=== PATIENT | male | born 1945 | race Hispanic/Latino ===

== ENCOUNTER 2017-12-26 17:02 | Inpatient (IN) | payer MEDICARE, BC ==
[2017-12-26 17:20] VITALS: O2SAT 95
--- NOTE | 2017-12-26 17:42 | ED PDOC ---
Arrival/HPI - General Chief Complaint: Psychiatric Evaluation Time Seen by Provider: 12/26/17 17:18 Historian: Patient - History of Present Illness Narrative History of Present Illness (Text): 12/26/17 21:09 72yo male with PMhx of depression and Dementia bib EMS from [facility] for depression. Patient states he was brought to ED for evaluation. He admits to depression. States his neighbors ar worried about him, because he has not been eating well. He notes that he is not eating because he doesn't like the food at [facility]. Admits to suicidal ideation. states if he has a gun, he will shoot himself. He denies hallucination, homicidal ideation, any somatic complaint. Past Medical History - Provider Review Nursing Documentation Reviewed: Yes - Infectious Disease Hx of Infectious Diseases: None - Cardiac Hx Cardiac Disorders: No - Pulmonary Hx Respiratory Disorders: No - Neurological Hx Dementia: Yes Hx Parkinson's Disease: Yes - HEENT Hx HEENT Disorder: No - Renal Hx Renal Disorder: No - Endocrine/Metabolic Hx Endocrine Disorders: No - Hematological/Oncological Hx Blood Disorders: No - Integumentary Hx Dermatological Disorder: No - Musculoskeletal/Rheumatological Hx Musculoskeletal Disorders: Yes Other/Comment: Failure to Thrive. Abnormal weight loss. - Gastrointestinal Hx Gastroesophageal Reflux: Yes - Genitourinary/Gynecological Hx Prostate Cancer: Yes (Malignant Neoplasm of prostate) - Psychiatric Hx Anxiety: Yes Hx Depression: Yes Hx Schizophrenia: Yes Hx Substance Use: No - Surgical History Hx Cholecystectomy: Yes - Anesthesia Hx Anesthesia: No Family/Social History - Physician Review Nursing Documentation Reviewed: Yes Family/Social History: Unknown Family HX Smoking Status: Never Smoked Hx Alcohol Use: No Hx Substance Use: No Allergies/Home Meds Allergies/Adverse Reactions: Allergies No Known Allergies Allergy (Verified 12/26/17 17:08) Home Medications: Home Meds Medication Instructions Recorded Confirmed Carbidopa/Levodopa 1 each PO TID 11/15/17 12/26/17 [Carbidopa-Levodopa 10-100 Tab] Tamsulosin [Flomax] 0.4 mg PO DAILY 11/15/17 12/26/17 Aluminum Hydroxide Gel 320mg /5ml 30 ml PO Q4 PRN 12/26/17 12/26/17 Susp (Bulk) Famotidine [Pepcid] 20 mg PO HS 12/26/17 12/26/17 Magnesium Hydroxide [Milk of 30 ml PO DAILY PRN 12/26/17 12/26/17 Magnesia] Sennosides 8.6 mg PO BID 12/26/17 12/26/17 Vortioxetine Hydrobromide 5 mg PO DAILY 12/26/17 12/26/17 [Trintellix] Vortioxetine Hydrobromide 10 mg PO DAILY 12/26/17 12/26/17 [Trintellix] Review of Systems - Physician Review All systems were reviewed & negative as marked: Yes - Review of Systems Constitutional: Normal Eyes: Normal ENT: Normal Respiratory: Normal Cardiovascular: Normal Gastrointestinal: Normal Genitourinary Male: Normal Musculoskeletal: Normal Skin: Normal Neurological: Normal Endocrine: Normal Hemo/Lymphatic: Normal Psychiatric: Depression Physical Exam Vital Signs Reviewed: Yes Vital Signs Temp Pulse Resp BP Pulse Ox 12/26/17 17:19 98.1 F 92 H 20 117/70 95 Temperature: Afebrile Blood Pressure: Normal Pulse: Regular Respiratory Rate: Normal Appearance: Positive for: Well-Appearing, Non-Toxic, Comfortable Pain Distress: None Mental Status: Positive for: Alert and Oriented X 3 - Systems Exam Head: Present: Atraumatic, Normocephalic Pupils: Present: PERRL Extroacular Muscles: Present: EOMI Conjunctiva: Present: Normal Mouth: Present: Moist Mucous Membranes Neck: Present: Normal Range of Motion Respiratory/Chest: Present: Clear to Auscultation, Good Air Exchange. No: Respiratory Distress, Accessory Muscle Use Cardiovascular: Present: Regular Rate and Rhythm, Normal S1, S2. No: Murmurs Abdomen: Present: Normal Bowel Sounds. No: Tenderness, Distention, Peritoneal Signs Back: Present: Normal Inspection Upper Extremity: Present: Normal Inspection. No: Cyanosis, Edema Lower Extremity: Present: Normal Inspection. No: Edema Neurological: Present: GCS=15, CN II-XII Intact, Speech Normal Skin: Present: Warm, Dry, Normal Color. No: Rashes Psychiatric: Present: Alert, Oriented x 3, Normal Insight, Normal Concentration Medical Decision Making ED Course and Treatment: 12/26/17 23:39 PT in ED for stated history. He was medically cleared for psych evaluation. He was seen in ED by MICHAEL Kincaid and was admitted to Dr. Belle for depression. EKG NSR ; RBB @92bpm CXR NAD - Lab Interpretations Lab Results: 12/26/17 18:08 12/26/17 18:08 Lab Results 12/26/17 19:43: Urine Opiates Screen Negative, Urine Methadone Screen Negative, Ur Barbiturates Screen Negative, Ur Phencyclidine Scrn Negative, Ur Amphetamines Screen Negative, U Benzodiazepines Scrn Positive, U Oth Cocaine Metabols Negative, U Cannabinoids Screen Positive H 12/26/17 19:43: Urine Color Yellow, Urine Appearance Clear, Urine pH 6.0, Ur Specific [place] 1.025, Urine Protein Trace H, Urine Glucose (UA) Negative, Urine Ketones 15 H, Urine Blood Negative, Urine Nitrate Negative, Urine Bilirubin Negative, Urine Urobilinogen 0.2, Ur Leukocyte Esterase Negative, Urine RBC 0 - 2, Urine WBC 0 - 2, Ur Epithelial Cells 0 - 2, Urine Bacteria Few 12/26/17 18:08: Alcohol, Quantitative < 10 12/26/17 18:08: Salicylates < 1 L, Acetaminophen < 10.0 L 12/26/17 18:08: Sodium 141, Potassium 3.9, Chloride 106, Carbon Dioxide 27, Anion Gap 12, BUN 15, Creatinine 1.0, Est GFR ( Amer) > 60, Est GFR (Non- Af Amer) > 60, Random Glucose 94, Calcium 9.7, Total Bilirubin 0.7, AST 30, ALT 23, Alkaline Phosphatase 63, Total Protein 6.3, Albumin 3.6, Globulin 2.7, Albumin/Globulin Ratio 1.3 12/26/17 18:08: WBC 5.0, RBC 3.98, Hgb 12.6 L, Hct 36.4 L, MCV 91.5, MCH 31.7, MCHC 34.6, RDW 12.8, Plt Count 275, MPV 8.8, Gran % 59.5, Lymph % (Auto) 28.0, [place] % (Auto) 9.3 H, Eos % (Auto) 2.6, Baso % (Auto) 0.6, Gran # 3.00, Lymph # ( Auto) 1.4, [place] # (Auto) 0.5, Eos # (Auto) 0.1, Baso # (Auto) 0.03 Disposition/Present on Arrival - Present on Arrival Any Indicators Present on Arrival: No History of DVT/PE: No History of Uncontrolled Diabetes: No Urinary Catheter: No History of Decub. Ulcer: No History Surgical Site Infection Following: None - Disposition Have Diagnosis and Disposition been Completed?: Yes Diagnosis: Depression Disposition: HOSPITALIZED Disposition Time: 22:25 Patient Plan: Admission Patient Problems: Current Active Problems Problem Status Onset Depression Chronic Condition: FAIR
[2017-12-26 18:24] LABS: BASO # 0.03 K/mm3 (0.0-2.0); BASO % 0.6 % (0.0-3.0); EOS # 0.1 (0.0-0.7); EOS % 2.6 % (1.5-5.0); GRAN % 59.5 % (50.0-68.0); HEMOGLOBIN 12.6 g/dL (14.0-18.0); LYMPH # 1.4 (1.2-3.4); MEAN CELL VOLUME 91.5 fl (80.0-105.0); MEAN CORPUSCULAR HEMOGLOBIN 31.7 pg (25.0-35.0); MEAN CORPUSCULAR HGB CONC 34.6 g/dl (31.0-37.0); MEAN PLATELET VOLUME 8.8 fl (7.0-11.0); MONO # 0.5 (0.1-0.6); MONO % 9.3 % (1.0-6.0); RBC 3.98 10^6/uL (3.5-6.1); RED CELL DISTRIBUTION WIDTH 12.8 % (11.5-14.5)
[2017-12-26 19:06] LABS: ALB/GLOB RATIO 1.3 (1.1-1.8); ALBUMIN 3.6 g/dL (3.0-4.8); ALT/SGPT 23 U/L (7-56); AST/SGOT 30 U/L (17-59); BLOOD UREA NITROGEN 15 mg/dL (7-21); CALCIUM 9.7 mg/dL (8.4-10.5); GFR AFRICAN-AMERICAN > 60; GFR NON-AFRICAN AMERICAN > 60
[2017-12-26 19:09] LABS: ACETAMINOPHEN < 10.0 ug/ml (10.0-20.0); SALICYLATE < 1 mg/dL (2.0-20.0)
[2017-12-26 20:02] LABS: URINE APPEARANCE CLEAR (CLEAR); URINE BILIRUBIN NEGATIVE (NEGATIVE); URINE BLOOD NEGATIVE (NEGATIVE); URINE COLOR YELLOW (YELLOW); URINE GLUCOSE (UA) NEGATIVE (NEGATIVE); URINE LEUKOCYTE ESTERASE NEGATIVE Leu/uL (NEGATIVE); URINE PROTEIN TRACE mg/dL (<30 mg/dL); URINE UROBILINOGEN 0.2 E.U./dL (<1 E.U./dL)
[2017-12-26 20:32] LABS: BARBITURATES, UR NEGATIVE (NEGATIVE); BENZODIAZEPINES, UR POSITIVE (NEGATIVE); OPIATES, UR NEGATIVE (NEGATIVE); PHENCYCLIDINE, UR NEGATIVE (NEGATIVE)
[2017-12-26 21:18] LABS: URINE BACTERIA FEW (NEG); URINE EPITHELIAL CELLS 0 - 2 /hpf (0-5); URINE RBC 0 - 2 /hpf (0-2); URINE WBC 0 - 2 /hpf (0-6)
[2017-12-27] MEDS ORDERED: Alum-Mag Hydrox-Simethicone Susp (30 mL) PO PRN (00:45)
[2017-12-27] MEDS ORDERED: Magnesium Hydroxide Susp 30 ml UD PO PRN (00:45)
[2017-12-27 00:56] VITALS: BMI 21.6
--- NOTE | 2017-12-27 02:35 | PCM.BM ---
<Megan Coronado - Last Filed: 12/27/17 02:32> Treatment Plan Problems - Problems identified on initial assessmt Anxiety Date Initiated: 12/26/17 Time Initiated: 23:45 Assessment reference: NA Status: Active Priority: 1 Altered Thought Process Date Initiated: 12/26/17 Time Initiated: 23:45 Assessment reference: NA Status: Active Priority: 2 Altered Sleep Patterns Date Initiated: 12/26/17 Time Initiated: 23:45 Assessment reference: NA Status: Active Priority: 3 Treatment assets and liabiliti Patient Assests: cooperative Patient Liabilities: poor support system, medical problems, imparied memory, visual impairment - Milieu Protocol Maintain good personal hygiene: daily Encourage regular showers, daily Remind patient to perform daily oral care, daily Assist patient to perform ADL's Conduct patient checks and document Observation sheet: Q15 minutes Maintain personal safety: every shift Educate patient to report safety concerns to staff, every shift Monitor environment for contraband/sharps Medication safety: Monitor for expected outcome, potential side effects: every shift, Assess barriers to learning: every shift, Assess readiness for medication education: every shift Discharge/Continuing Care - Education Needs Education Needs: Family Medication, Family Diagnosis/Disease Process, Family Coping Skills, Family Community resources, Family Nutrition, Patient Medication , Patient Diagnosis/Disease Process, Patient Coping Skills, Patient Community resources, Patient Nutrition - Discharge Discharge Criteria: Tolerates medication w/o severe side effects, Free of agitation, Normal sleep pattern, Ability to care for self <Barbra Haynes - Last Filed: 12/27/17 12:17> - Diagnosis (1) MDD (major depressive disorder), recurrent, severe, with psychosis Status: Acute Interventions: 12/27/17 12:18 Psychoeducation Psychopharmacology/adjustment of medications as needed/ monitoring possible side effects Evaluate pt on daily basis Compliance with medications and follow up appointments Suicide and homicide risk assessment and prevention Relapse prevention Reduction of symptoms Improve functional status Family involvement As outpatient: cognitive behavioral therapy (2) JANETTE (generalized anxiety disorder) Status: Acute Interventions: 12/27/17 12:18 Psychoeducation Psychopharmacology/adjustment of medications as needed/ monitoring possible side effects Evaluate pt on daily basis Discussion of importance of being compliant with medications and follow up appointments Suicide and homicide risk assessment and prevention, coping strategies, safety plan Reduction of symptoms Relaxation techniques and breathing exercises Improve functional status Family involvement Cognitive behavioral therapy as outpatient (3) Panic disorder Status: Acute Interventions: 12/27/17 12:18 Psychoeducation Psychopharmacology/adjustment of medications as needed/ monitoring possible side effects Evaluate pt on daily basis Discussion of importance of being compliant with medications and follow up appointments Suicide and homicide risk assessment and prevention, coping strategies, safety plan Reduction of symptoms Relaxation techniques and breathing exercises Improve functional status Family involvement Cognitive behavioral therapy as outpatient <Ivanna Calderon - Last Filed: 12/29/17 15:23>
[2017-12-27 08:06] LABS: GLUCOSE,FASTING 80 mg/dL (65-110); HDL CHOLESTEROL 38 mg/dL (29-60)
[2017-12-27 08:17] LABS: LDL CHOLESTEROL 76 mg/dL (0-129)
--- NOTE | 2017-12-27 10:14 | RAD ---
HISTORY: admission COMPARISON: No prior. FINDINGS: LUNGS: No active pulmonary disease. PLEURA: No significant pleural effusion identified, no pneumothorax apparent. CARDIOVASCULAR: No radiographic findings to suggest acute or significant cardiovascular disease. OSSEOUS STRUCTURES: No significant abnormalities. VISUALIZED UPPER ABDOMEN: Normal. OTHER FINDINGS: None. IMPRESSION: No active disease.
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
--- NOTE | 2017-12-27 15:49 | CARD ---
APPROVED REPORT EKG Measurement Heart [id number] [id number] <Conclusion> Normal sinus rhythm Right bundle branch block Abnormal ECG
--- NOTE | 2017-12-28 12:57 | PCM.PYCHPN ---
Psychiatric Progress Note - Psychiatric Progress Note Patient seen today, length of contact: 30 minutes Patient Chief Complaint: "U medicated at me, that's why slept well" Problems Identified/Issues Discussed: Suicide/ homicide prevention, past psychiatric h/o, current psychiatric symptoms , medical problems, risk/benefits and alternatives of medications, medications compliance, coping strategies, substance abuse h/o, relapse prevention, importance of follow up with psychiatrist and therapist, discharge plan. Medical Problems: parkinson's disease and dementia Diagnostic Results: 12/26/17 18:08 12/26/17 18:08 Lab Results 12/27/17 07:00: RPR Nonreactive 12/27/17 07:00: TSH 3rd Generation 1.15 12/27/17 07:00: Fasting Glucose 80, Triglycerides 124, Cholesterol 149, LDL Cholesterol Direct 76, HDL Cholesterol 38 12/26/17 19:43: Urine Opiates Screen Negative, Urine Methadone Screen Negative, Ur Barbiturates Screen Negative, Ur Phencyclidine Scrn Negative, Ur Amphetamines Screen Negative, U Benzodiazepines Scrn Positive, U Oth Cocaine Metabols Negative, U Cannabinoids Screen Positive H 12/26/17 19:43: Urine Color Yellow, Urine Appearance Clear, Urine pH 6.0, Ur Specific [place] 1.025, Urine Protein Trace H, Urine Glucose (UA) Negative, Urine Ketones 15 H, Urine Blood Negative, Urine Nitrate Negative, Urine Bilirubin Negative, Urine Urobilinogen 0.2, Ur Leukocyte Esterase Negative, Urine RBC 0 - 2, Urine WBC 0 - 2, Ur Epithelial Cells 0 - 2, Urine Bacteria Few 12/26/17 18:08: Alcohol, Quantitative < 10 12/26/17 18:08: Salicylates < 1 L, Acetaminophen < 10.0 L 12/26/17 18:08: Sodium 141, Potassium 3.9, Chloride 106, Carbon Dioxide 27, Anion Gap 12, BUN 15, Creatinine 1.0, Est GFR ( Amer) > 60, Est GFR (Non- Af Amer) > 60, Random Glucose 94, Calcium 9.7, Total Bilirubin 0.7, AST 30, ALT 23, Alkaline Phosphatase 63, Total Protein 6.3, Albumin 3.6, Globulin 2.7, Albumin/Globulin Ratio 1.3 12/26/17 18:08: WBC 5.0, RBC 3.98, Hgb 12.6 L, Hct 36.4 L, MCV 91.5, MCH 31.7, MCHC 34.6, RDW 12.8, Plt Count 275, MPV 8.8, Gran % 59.5, Lymph % (Auto) 28.0, [place] % (Auto) 9.3 H, Eos % (Auto) 2.6, Baso % (Auto) 0.6, Gran # 3.00, Lymph # ( Auto) 1.4, [place] # (Auto) 0.5, Eos # (Auto) 0.1, Baso # (Auto) 0.03 Vital Signs Temp Pulse Resp BP Pulse Ox 12/28/17 07:45 97.3 F L 62 20 97/59 L 12/27/17 16:00 70 86/54 L 12/27/17 07:06 97.3 F L 74 20 105/48 L 12/27/17 00:55 98.2 F 79 20 104/62 12/26/17 17:19 98.1 F 92 H 20 117/70 95 DSM 5 Symptoms Update: Shortly pt is 72yo male with reported h/o depression/anxiety, Parkinson Dementia, multiple medical issues including weight loss, failure to thrive, GERD, malignant neoplasm of prostate, was sent by [place] for evaluation of depressive symptoms, refuse to eat, feeling of hopelessness, worsening of anxiety, change in mental status, pt also was asking his POA to obtain a gun and expressed his wish to kill himself, pt also was more paranoid lately, pt has Parkinson's dementia and severe EPS on antipsychotic meds and pt required further evaluation and stabilization, med management. pt was seen and examined next to the nursing station today, pt was observed walking with 1:1 using a walker, patient presented with better spirits today, was less irritable, less paranoid. As per staff, patient slept through the night, no behavioral incident, had fair appetite, ate about 60-70% of his meal. Patient still in the high risk of falls, at times confusion, we will continue one-to-one as of now, possible discontinuation off one-to-one by tomorrow. Patient reported "you medicated me, that's why I slept well" Patient tolerates medications well so far, mild tremor in upper extremities, no worsening of EPS symptoms. DSM 5 Diagnosis: r/o mdd r/o mood disorder due to a [facility] parkinson's dementia r/o psychosis due to medications (levodopa/carbidopa) h/o JANETTE, panic disorder, OCD Medication Change: Yes (Seroquel was increased) Medical Record Reviewed: Yes (yes) Consults ordered or reviewed: urology consult was called, patient has Parkinson dementia, history of EPS on psychotropic medications, will be seen by Dr. Santiago tomorrow. Mental Status Examination - Cognitive Function Orientation: Person Memory: Impaired Attention: Poor Concentration: Poor Association: Loose Fund of Knowledge: WNL - Mood Mood: Depressed, Anxious - Affect Affect: Flat - Speech Speech: Appropriate (but soft and monotonic) - Formal Thought Process Formal Thought Process: Delusions (little better), Paranoia (little better), Circumstantial - Suicidal Ideation Suicidal Ideation: No Plan: denied today, but yesterday - Homicidal Ideation Homicidal Ideation: No Goal/Treatment Plan - Goal/Treatment Plan Need for Continued Stay: Remain at risks for inpatient hospitalization, Severe depression anxiety, Discharge may exacerbated symptoms, Severe functional impairment Progress Toward Problem(s) and Goals/Treatment Plan: milieu/structure/supportive therapy Carbidopa/Levodopa [Carbidopa-Levodopa 10-100 Tab] 1 each PO TID will be continued PT eval Neuro eval Tamsulosin [Flomax] 0.4 mg PO DAILY will be continued Temazepam [Restoril] will be d/c Sennosides 8.6 mg PO BID continued Vortioxetine nonformulary, Remeron was started, over night, pt slept little better, will increase dose to 15mg zoloft 25mg dailyfor OCD and Panic, JANETTE symptoms seroquel 25mg amhs for psychosis (better side effect profile in regards of EPS) will give PRN meds SW evaluation POA involvement Follow up on labs Will monitor closely Pt was educated about risk/benefits and alternatives of medications, coping strategies (safety plan, suicide prevention), relapse prevention, importance of follow up with psychiatrist and therapist, stay away from drugs/alcohol/smoking Estimated Date of D/C: 01/05/18 (will monitor closely)
--- NOTE | 2017-12-29 13:27 | CP.PCM.PCO ---
Physician Communication Note - Physician Communication Note Physician Communication Note: NOT PD, HOLD sinemet.
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
--- NOTE | 2017-12-29 21:18 | CON ---
DATE: HISTORY OF PRESENT ILLNESS: This is a 72-year-old male with past medical history of dementia and depression, who was brought here from [facility] and the patient complained of depression and lying comfortably in bed. I was called to evaluate the patient admitted with suicidal ideation, admitted for harming himself. PAST MEDICAL HISTORY: As above. ALLERGIES: NO KNOWN DRUG ALLERGY. HOME MEDICATIONS: Carbidopa and levodopa one t.i.d., Pepcid, Flomax, and the patient is on Trintellix. REVIEW OF SYSTEMS: A 10-point review of systems was negative. LABORATORY DATA: WBC 5, hemoglobin 12.6, hematocrit 36.4, platelet 275. Sodium 141, potassium 3.9, chloride 106, CO2 of 27, glucose 94, BUN 15, creatinine 1. Workup in progress. Continue present management. We will follow up. We will order the CAT scan of the head without contrast. Bull Santiago MD
--- NOTE | 2017-12-30 16:04 | PCM.PYCHPN ---
Psychiatric Progress Note - Psychiatric Progress Note Patient seen today, length of contact: 30 minutes Patient Chief Complaint: " my mood is not existing" Problems Identified/Issues Discussed: Suicide/ homicide prevention, past psychiatric h/o, current psychiatric symptoms , medical problems, risk/benefits and alternatives of medications, medications compliance, coping strategies, substance abuse h/o, relapse prevention, importance of follow up with psychiatrist and therapist, discharge plan. Medical Problems: correction to my previous note: pt had parkinsonism, not parkinsons disease Diagnostic Results: 12/26/17 18:08 12/26/17 18:08 Lab Results 12/27/17 07:00: RPR Nonreactive 12/27/17 07:00: TSH 3rd Generation 1.15 12/27/17 07:00: Fasting Glucose 80, Triglycerides 124, Cholesterol 149, LDL Cholesterol Direct 76, HDL Cholesterol 38 12/26/17 19:43: Urine Opiates Screen Negative, Urine Methadone Screen Negative, Ur Barbiturates Screen Negative, Ur Phencyclidine Scrn Negative, Ur Amphetamines Screen Negative, U Benzodiazepines Scrn Positive, U Oth Cocaine Metabols Negative, U Cannabinoids Screen Positive H 12/26/17 19:43: Urine Color Yellow, Urine Appearance Clear, Urine pH 6.0, Ur Specific [place] 1.025, Urine Protein Trace H, Urine Glucose (UA) Negative, Urine Ketones 15 H, Urine Blood Negative, Urine Nitrate Negative, Urine Bilirubin Negative, Urine Urobilinogen 0.2, Ur Leukocyte Esterase Negative, Urine RBC 0 - 2, Urine WBC 0 - 2, Ur Epithelial Cells 0 - 2, Urine Bacteria Few 12/26/17 18:08: Alcohol, Quantitative < 10 12/26/17 18:08: Salicylates < 1 L, Acetaminophen < 10.0 L 12/26/17 18:08: Sodium 141, Potassium 3.9, Chloride 106, Carbon Dioxide 27, Anion Gap 12, BUN 15, Creatinine 1.0, Est GFR ( Amer) > 60, Est GFR (Non- Af Amer) > 60, Random Glucose 94, Calcium 9.7, Total Bilirubin 0.7, AST 30, ALT 23, Alkaline Phosphatase 63, Total Protein 6.3, Albumin 3.6, Globulin 2.7, Albumin/Globulin Ratio 1.3 12/26/17 18:08: WBC 5.0, RBC 3.98, Hgb 12.6 L, Hct 36.4 L, MCV 91.5, MCH 31.7, MCHC 34.6, RDW 12.8, Plt Count 275, MPV 8.8, Gran % 59.5, Lymph % (Auto) 28.0, [place] % (Auto) 9.3 H, Eos % (Auto) 2.6, Baso % (Auto) 0.6, Gran # 3.00, Lymph # ( Auto) 1.4, [place] # (Auto) 0.5, Eos # (Auto) 0.1, Baso # (Auto) 0.03 Vital Signs Temp Pulse Resp BP Pulse Ox 12/28/17 07:45 97.3 F L 62 20 97/59 L 12/27/17 16:00 70 86/54 L 12/27/17 07:06 97.3 F L 74 20 105/48 L 12/27/17 00:55 98.2 F 79 20 104/62 12/26/17 17:19 98.1 F 92 H 20 117/70 95 Temp Pulse Resp BP Pulse Ox 97.6 F 75 20 86/52 L 95 12/29/17 07:25 12/29/17 07:25 12/29/17 07:25 12/29/17 07:25 12/26/17 17:19 DSM 5 Symptoms Update: Shortly pt is 72yo male with reported h/o depression/anxiety, Parkinsonism, multiple medical issues including weight loss, failure to thrive, GERD, malignant neoplasm of prostate, was sent by [place] for evaluation of depressive symptoms, refuse to eat, feeling of hopelessness, worsening of anxiety, change in mental status, pt also was asking his POA to obtain a gun and expressed his wish to kill himself, pt also was more paranoid lately. Correction to my previous note, after discussion with (neurologist) 12/29/17 pt does not have history of Parkinson's disease, r/o dementia and severe EPS on antipsychotic/antidepressants meds. Pt required further evaluation and stabilization, med management. pt was seen and examined today at the dining area, patient appears with some psychomotor retardation, patient reported that he feels "groggy", as per report patient was very restless yesterday needed to have IM of Ativan over nighttime. patient appears to be depressed, with some psychomotor retardation, patient said that his mood is not existing at present moment, patient appears to be flat , apathetic during the interview. As per nursing report, yesterday patient was in good spirits, were some TV and ate well. Patient still paranoid, but then less extent. Patient still in the high risk of falls, at times confusion, we will continue one-to-one as of now, as of now pt will be not able to be off 1:1, as per PT pt needs to go to [facility]. Patient tolerates medications well so far, mild tremor in upper extremities, no worsening of EPS symptoms. DSM 5 Diagnosis: r/o mdd r/o mood disorder due to a [facility] parkinson's dementia r/o psychosis due to medications (levodopa/carbidopa) h/o JANETTE, panic disorder, OCD Medication Change: Yes (Zoloft increased) Medical Record Reviewed: Yes (yes) Mental Status Examination - Cognitive Function Orientation: Person Memory: Impaired Attention: Poor Concentration: Poor Association: Loose Fund of Knowledge: WNL - Mood Mood: Depressed, Anxious - Affect Affect: Flat - Speech Speech: Appropriate (but soft and monotonic) - Formal Thought Process Formal Thought Process: Delusions (little better), Paranoia (little better), Circumstantial - Suicidal Ideation Suicidal Ideation: No - Homicidal Ideation Homicidal Ideation: No Goal/Treatment Plan - Goal/Treatment Plan Need for Continued Stay: Remain at risks for inpatient hospitalization, Severe depression anxiety, Discharge may exacerbated symptoms, Severe functional impairment Progress Toward Problem(s) and Goals/Treatment Plan: milieu/structure/supportive therapy Carbidopa/Levodopa will be d/c PT eval [facility] Neuro eval d/c sinemet Tamsulosin [Flomax] 0.4 mg PO DAILY will be continued Temazepam [Restoril] will be d/c Sennosides 8.6 mg PO BID continued Vortioxetine nonformulary, Remeron was started, over night, pt slept little better, will increase dose to 15mg zoloft 50mg dailyfor OCD and Panic, JANETTE symptoms seroquel 25mg amhs for psychosis (better side effect profile in regards of EPS) will give PRN meds SW evaluation POA involvement Follow up on labs Will monitor closely Pt was educated about risk/benefits and alternatives of medications, coping strategies (safety plan, suicide prevention), relapse prevention, importance of follow up with psychiatrist and therapist, stay away from drugs/alcohol/smoking Estimated Date of D/C: 01/05/18 (will monitor closely)
--- NOTE | 2017-12-31 12:33 | PCM.PYCHPN ---
Psychiatric Progress Note - Psychiatric Progress Note Patient seen today, length of contact: 30 minutes Patient Chief Complaint: "...." Problems Identified/Issues Discussed: Suicide/ homicide prevention, past psychiatric h/o, current psychiatric symptoms , medical problems, risk/benefits and alternatives of medications, medications compliance, coping strategies, substance abuse h/o, relapse prevention, importance of follow up with psychiatrist and therapist, discharge plan. Medical Problems: correction to my previous note: pt had parkinsonism, not parkinsons disease Diagnostic Results: 12/26/17 18:08 12/26/17 18:08 Lab Results 12/27/17 07:00: RPR Nonreactive 12/27/17 07:00: TSH 3rd Generation 1.15 12/27/17 07:00: Fasting Glucose 80, Triglycerides 124, Cholesterol 149, LDL Cholesterol Direct 76, HDL Cholesterol 38 12/26/17 19:43: Urine Opiates Screen Negative, Urine Methadone Screen Negative, Ur Barbiturates Screen Negative, Ur Phencyclidine Scrn Negative, Ur Amphetamines Screen Negative, U Benzodiazepines Scrn Positive, U Oth Cocaine Metabols Negative, U Cannabinoids Screen Positive H 12/26/17 19:43: Urine Color Yellow, Urine Appearance Clear, Urine pH 6.0, Ur Specific Roberts 1.025, Urine Protein Trace H, Urine Glucose (UA) Negative, Urine Ketones 15 H, Urine Blood Negative, Urine Nitrate Negative, Urine Bilirubin Negative, Urine Urobilinogen 0.2, Ur Leukocyte Esterase Negative, Urine RBC 0 - 2, Urine WBC 0 - 2, Ur Epithelial Cells 0 - 2, Urine Bacteria Few 12/26/17 18:08: Alcohol, Quantitative < 10 12/26/17 18:08: Salicylates < 1 L, Acetaminophen < 10.0 L 12/26/17 18:08: Sodium 141, Potassium 3.9, Chloride 106, Carbon Dioxide 27, Anion Gap 12, BUN 15, Creatinine 1.0, Est GFR ( Amer) > 60, Est GFR (Non- Af Amer) > 60, Random Glucose 94, Calcium 9.7, Total Bilirubin 0.7, AST 30, ALT 23, Alkaline Phosphatase 63, Total Protein 6.3, Albumin 3.6, Globulin 2.7, Albumin/Globulin Ratio 1.3 12/26/17 18:08: WBC 5.0, RBC 3.98, Hgb 12.6 L, Hct 36.4 L, MCV 91.5, MCH 31.7, MCHC 34.6, RDW 12.8, Plt Count 275, MPV 8.8, Gran % 59.5, Lymph % (Auto) 28.0, Pickett % (Auto) 9.3 H, Eos % (Auto) 2.6, Baso % (Auto) 0.6, Gran # 3.00, Lymph # ( Auto) 1.4, Pickett # (Auto) 0.5, Eos # (Auto) 0.1, Baso # (Auto) 0.03 Vital Signs Temp Pulse Resp BP Pulse Ox 12/28/17 07:45 97.3 F L 62 20 97/59 L 12/27/17 16:00 70 86/54 L 12/27/17 07:06 97.3 F L 74 20 105/48 L 12/27/17 00:55 98.2 F 79 20 104/62 12/26/17 17:19 98.1 F 92 H 20 117/70 95 Temp Pulse Resp BP Pulse Ox 97.6 F 75 20 86/52 L 95 12/29/17 07:25 12/29/17 07:25 12/29/17 07:25 12/29/17 07:25 12/26/17 17:19 Temp Pulse Resp BP Pulse Ox 98.2 F 65 20 116/58 L 95 12/31/17 07:21 12/31/17 07:21 12/31/17 07:21 12/31/17 07:21 12/26/17 17:19 DSM 5 Symptoms Update: Shortly pt is 72yo male with reported h/o depression/anxiety, Parkinsonism, multiple medical issues including weight loss, failure to thrive, GERD, malignant neoplasm of prostate, was sent by [place] for evaluation of depressive symptoms, refuse to eat, feeling of hopelessness, worsening of anxiety, change in mental status, pt also was asking his POA to obtain a gun and expressed his wish to kill himself, pt also was more paranoid lately. Correction to my previous note, after discussion with (neurologist) 12/29/17 pt does not have history of Parkinson's disease, r/o dementia and severe EPS on antipsychotic/antidepressants meds. Pt required further evaluation and stabilization, med management. pt was seen in the dinning area, patient was sleepy at am because pt had a rough night, was not able to sleep because of other pt agitaton, then pt became restless and tried to climb off the bed, was in danger to self, pt needed to have IM of ativan. pt appeared to be still, some cogwheel rigidity, will resume Sinemet as per neurology recommendation (discussed with Dr.Kapoor Abel over the phone). pt said that he is less depressed, guarded but less paranoid. Patient still in the high risk of falls, at times confusion, we will continue one-to-one as of now, as of now pt will be not able to be off 1:1, as per PT pt needs to go to [facility]. pt is able to ambulate using a rolling walker. DSM 5 Diagnosis: r/o mdd r/o mood disorder due to [place] [facility] r/o psychosis due to medications (levodopa/carbidopa) h/o JANETTE, panic disorder, OCD Medication Change: Yes (sinemet) Medical Record Reviewed: Yes (yes) Mental Status Examination - Cognitive Function Orientation: Person Memory: Impaired Attention: Poor Concentration: Poor Association: Loose Fund of Knowledge: WNL - Mood Mood: Depressed, Anxious - Affect Affect: Flat - Speech Speech: Appropriate (but soft and monotonic) - Formal Thought Process Formal Thought Process: Delusions (little better), Paranoia (little better), Circumstantial - Suicidal Ideation Suicidal Ideation: No - Homicidal Ideation Homicidal Ideation: No Goal/Treatment Plan - Goal/Treatment Plan Need for Continued Stay: Remain at risks for inpatient hospitalization, Severe depression anxiety, Discharge may exacerbated symptoms, Severe functional impairment Progress Toward Problem(s) and Goals/Treatment Plan: milieu/structure/supportive therapy Carbidopa/Levodopa 10/100 will be resumed PT eval [facility] Neuro eval d/c sinemet Tamsulosin [Flomax] 0.4 mg PO DAILY will be continued Temazepam [Restoril] will be d/c Sennosides 8.6 mg PO BID continued Vortioxetine nonformulary, Remeron was started, over night, pt slept little better, will increase dose to 15mg zoloft 50mg dailyfor OCD and Panic, JANETTE symptoms seroquel 25mg amhs for psychosis (better side effect profile in regards of EPS) will give PRN meds SW evaluation POA involvement Follow up on labs Will monitor closely Pt was educated about risk/benefits and alternatives of medications, coping strategies (safety plan, suicide prevention), relapse prevention, importance of follow up with psychiatrist and therapist, stay away from drugs/alcohol/smoking Estimated Date of D/C: 01/05/18 (will monitor closely)
--- NOTE | 2018-01-01 15:31 | PCM.PYCHPN ---
Psychiatric Progress Note - Psychiatric Progress Note Patient seen today, length of contact: 30 minutes Patient Chief Complaint: "I am still depressed" Problems Identified/Issues Discussed: Suicide/ homicide prevention, past psychiatric h/o, current psychiatric symptoms , medical problems, risk/benefits and alternatives of medications, medications compliance, coping strategies, substance abuse h/o, relapse prevention, importance of follow up with psychiatrist and therapist, discharge plan. Medical Problems: correction to my previous note: pt had parkinsonism, not parkinsons disease Diagnostic Results: 12/26/17 18:08 12/26/17 18:08 Lab Results 12/27/17 07:00: RPR Nonreactive 12/27/17 07:00: TSH 3rd Generation 1.15 12/27/17 07:00: Fasting Glucose 80, Triglycerides 124, Cholesterol 149, LDL Cholesterol Direct 76, HDL Cholesterol 38 12/26/17 19:43: Urine Opiates Screen Negative, Urine Methadone Screen Negative, Ur Barbiturates Screen Negative, Ur Phencyclidine Scrn Negative, Ur Amphetamines Screen Negative, U Benzodiazepines Scrn Positive, U Oth Cocaine Metabols Negative, U Cannabinoids Screen Positive H 12/26/17 19:43: Urine Color Yellow, Urine Appearance Clear, Urine pH 6.0, Ur Specific Boyle 1.025, Urine Protein Trace H, Urine Glucose (UA) Negative, Urine Ketones 15 H, Urine Blood Negative, Urine Nitrate Negative, Urine Bilirubin Negative, Urine Urobilinogen 0.2, Ur Leukocyte Esterase Negative, Urine RBC 0 - 2, Urine WBC 0 - 2, Ur Epithelial Cells 0 - 2, Urine Bacteria Few 12/26/17 18:08: Alcohol, Quantitative < 10 12/26/17 18:08: Salicylates < 1 L, Acetaminophen < 10.0 L 12/26/17 18:08: Sodium 141, Potassium 3.9, Chloride 106, Carbon Dioxide 27, Anion Gap 12, BUN 15, Creatinine 1.0, Est GFR ( Amer) > 60, Est GFR (Non- Af Amer) > 60, Random Glucose 94, Calcium 9.7, Total Bilirubin 0.7, AST 30, ALT 23, Alkaline Phosphatase 63, Total Protein 6.3, Albumin 3.6, Globulin 2.7, Albumin/Globulin Ratio 1.3 12/26/17 18:08: WBC 5.0, RBC 3.98, Hgb 12.6 L, Hct 36.4 L, MCV 91.5, MCH 31.7, MCHC 34.6, RDW 12.8, Plt Count 275, MPV 8.8, Gran % 59.5, Lymph % (Auto) 28.0, Granite % (Auto) 9.3 H, Eos % (Auto) 2.6, Baso % (Auto) 0.6, Gran # 3.00, Lymph # ( Auto) 1.4, Granite # (Auto) 0.5, Eos # (Auto) 0.1, Baso # (Auto) 0.03 Vital Signs Temp Pulse Resp BP Pulse Ox 12/28/17 07:45 97.3 F L 62 20 97/59 L 12/27/17 16:00 70 86/54 L 12/27/17 07:06 97.3 F L 74 20 105/48 L 12/27/17 00:55 98.2 F 79 20 104/62 12/26/17 17:19 98.1 F 92 H 20 117/70 95 Temp Pulse Resp BP Pulse Ox 97.6 F 75 20 86/52 L 95 12/29/17 07:25 12/29/17 07:25 12/29/17 07:25 12/29/17 07:25 12/26/17 17:19 Temp Pulse Resp BP Pulse Ox 98.2 F 65 20 116/58 L 95 12/31/17 07:21 12/31/17 07:21 12/31/17 07:21 12/31/17 07:21 12/26/17 17:19 DSM 5 Symptoms Update: Shortly pt is 72yo male with reported h/o depression/anxiety, Parkinsonism, multiple medical issues including weight loss, failure to thrive, GERD, malignant neoplasm of prostate, was sent by [place] for evaluation of depressive symptoms, refuse to eat, feeling of hopelessness, worsening of anxiety, change in mental status, pt also was asking his POA to obtain a gun and expressed his wish to kill himself, pt also was more paranoid lately. Correction to my previous note, after discussion with (neurologist) 12/29/17 pt does not have history of Parkinson's disease, r/o dementia and severe EPS on antipsychotic/antidepressants meds. Pt required further evaluation and stabilization, med management. pt was seen in the dinning area, patient was sleepy at am because pt had a rough night as per report pt had difficulties to fall and to stay asleep. pt still feels very depressed, no changes with pt's mood pt still wants to purchase the gun and "blow my head off". yesterday pt appeared to be stiff, cogwheel rigidity, Sinemet was resumed as per neurology recommendation (discussed with Dr.Kapoor Espinoza over the phone), less stiff. Patient still in the high risk of falls, at times confusion, we will continue one-to-one as of now, as of now pt will be not able to be off 1:1, as per PT pt needs to go to [facility]. pt is able to ambulate using a rolling walker. DSM 5 Diagnosis: r/o mdd r/o mood disorder due to [place] [facility] [place] r/o psychosis due to medications (levodopa/carbidopa) h/o JANETTE, panic disorder, OCD Medication Change: Yes (sinemet) Medical Record Reviewed: Yes (yes) Consults ordered or reviewed: neurology consult was called, patient had EPS on psychotropic medications, was seen by Dr. Santiago. Mental Status Examination - Cognitive Function Orientation: Person Memory: Impaired Attention: Poor Concentration: Poor Association: Loose Fund of Knowledge: WNL - Mood Mood: Depressed ("I want to blow my head off"), Anxious - Affect Affect: Flat - Speech Speech: Appropriate (but soft and monotonic) - Formal Thought Process Formal Thought Process: Delusions (little better), Paranoia (little better), Circumstantial - Suicidal Ideation Suicidal Ideation: No - Homicidal Ideation Homicidal Ideation: No Goal/Treatment Plan - Goal/Treatment Plan Need for Continued Stay: Remain at risks for inpatient hospitalization, Severe depression anxiety, Discharge may exacerbated symptoms, Severe functional impairment Progress Toward Problem(s) and Goals/Treatment Plan: milieu/structure/supportive therapy Carbidopa/Levodopa 10/100 will be resumed, pt was very stiff 01/01/18 PT eval [facility] Tamsulosin [Flomax] 0.4 mg PO DAILY will be continued Temazepam [Restoril] will be d/c Sennosides 8.6 mg PO BID continued Vortioxetine nonformulary, Remeron was started, over night, pt slept little better, will increase dose to 15mg zoloft 75mg dailyfor OCD and Panic, JANETTE symptoms seroquel 25mg amhs for psychosis (better side effect profile in regards of EPS) will give PRN meds SW evaluation POA involvement Follow up on labs Will monitor closely Pt was educated about risk/benefits and alternatives of medications, coping strategies (safety plan, suicide prevention), relapse prevention, importance of follow up with psychiatrist and therapist, stay away from drugs/alcohol/smoking Estimated Date of D/C: 01/07/18 (will monitor closely)
--- NOTE | 2018-01-03 05:22 | PCM.PYCHPN ---
Psychiatric Progress Note - Psychiatric Progress Note Patient seen today, length of contact: 25 minutes Problems Identified/Issues Discussed: I reviewed assessment and recent notes. Patient is a 72yo male with reported h/o depression/anxiety, multiple medical issues including weight loss, failure to thrive, GERD, malignant neoplasm of prostate who was sent by [place] for evaluation of depressive symptoms including refusing to eat, feelings of hopelessness, worsening of anxiety, paranoia and change in mental status. Patient also asked his POA to obtain a gun because he wished to kill himself. I met with patient at bedside. He was deeply sleeping and difficult to rouse because he had another restless night. Staff indicates that patient is confused and attempts to get out of bed at night. Patient still requires 1:[address] Haynes's note indicates that patient continues to be very depressed with suicidal thoughts to shoot himself in the head. Staff notes indicate that patient has been visible on the unit and attended groups. Speech is generally underproductive. Patient has been compliant with medications and demonstrates good appetite. There were no other recent behavioral issues noted. Diagnostic Results: r/o mdd r/o mood disorder due [place] [facility] r/o psychosis due to medications (levodopa/carbidopa) Medication Change: Yes (Seroquel changed from 25 amhs to 50 hs) Medical Record Reviewed: Yes (yes) Mental Status Examination - Cognitive Function Orientation: Person Memory: Impaired Attention: Poor Concentration: Poor Association: Loose Fund of Knowledge: WNL - Mood Mood: Depressed ("I want to blow my head off"), Anxious - Affect Affect: Flat - Speech Speech: Appropriate (but soft and monotonic) - Formal Thought Process Formal Thought Process: Delusions (little better), Paranoia (little better), Circumstantial - Suicidal Ideation Suicidal Ideation: No - Homicidal Ideation Homicidal Ideation: No Goal/Treatment Plan - Goal/Treatment Plan Need for Continued Stay: Remain at risks for inpatient hospitalization, Severe depression anxiety, Discharge may exacerbated symptoms, Severe functional impairment Progress Toward Problem(s) and Goals/Treatment Plan: * c/w current tx and plan * Seroquel changed from 25 mg AMHS to 50 mg HS to help with sedation during the day and night time restless/confusion * Vitals reviewed and noted below: Selected Entries 01/02/18 06:17 Temperature 97.3 F L Pulse Rate 73 Respiratory 18 Rate Blood Pressure 127/60 * No new floor labs thus far Estimated Date of D/C: 01/07/18 (will monitor closely)
--- NOTE | 2018-01-03 12:44 | PCM.PYCHPN ---
Psychiatric Progress Note - Psychiatric Progress Note Patient seen today, length of contact: 25 minutes Problems Identified/Issues Discussed: Patient is a 72yo male with reported h/o depression/anxiety, multiple medical issues including weight loss, failure to thrive, GERD, malignant neoplasm of prostate who was sent by [place] for evaluation of depressive symptoms including refusing to eat, feelings of hopelessness, worsening of anxiety, paranoia and change in mental status. Patient also asked his POA to obtain a gun because he wished to kill himself, pt also was more paranoid lately. I reviewed recent notes and met with patient at bedside. He was deeply sleeping and difficult to rouse because he had another restless night despite falling asleep early. This provider made a (conservative) changes in his Seroquel dosing from 25 mg bid to 50 mg HS yesterday. Staff notes indicate that patient has been calm and visible on the unit this weekend thus far. He is attending groups. Speech is generally underproductive and he appears depressed and blunt on the unit. Patient has been compliant with medications and demonstrates fair-good appetite. There were no other recent behavioral issues noted. Diagnostic Results: r/o mdd r/o mood disorder due to [place] [facility] [place] r/o psychosis due to medications (levodopa/carbidopa) Medication Change: Yes (changed seroquel 50 HS to 50 mg po 1800) Medical Record Reviewed: Yes (yes) Mental Status Examination - Cognitive Function Orientation: Person Memory: Impaired Attention: Poor Concentration: Poor Association: Loose Fund of Knowledge: WNL - Mood Mood: Depressed ("I want to blow my head off"), Anxious - Affect Affect: Flat - Speech Speech: Appropriate (but soft and monotonic) - Formal Thought Process Formal Thought Process: Delusions (little better), Paranoia (little better), Circumstantial - Suicidal Ideation Suicidal Ideation: No - Homicidal Ideation Homicidal Ideation: No Goal/Treatment Plan - Goal/Treatment Plan Need for Continued Stay: Remain at risks for inpatient hospitalization, Severe depression anxiety, Discharge may exacerbated symptoms, Severe functional impairment Progress Toward Problem(s) and Goals/Treatment Plan: * c/w current tx and plan * Seroquel changed from 25 mg AMHS to 50 mg HS to help with sedation during the day and night time restless/confusion on 01/02/18 and then changed to 50 mg po 1800 to help with sedation in the AM. * Vitals reviewed and noted below: Selected Entries 01/03/18 06:46 Temperature 97.9 F Pulse Rate 61 Respiratory 18 Rate Blood Pressure 106/57 L * No new floor labs thus far Estimated Date of D/C: 01/07/18 (will monitor closely)
--- NOTE | 2018-01-04 09:12 | PCM.PYCHPN ---
Psychiatric Progress Note - Psychiatric Progress Note Patient seen today, length of contact: 25 minutes Patient Chief Complaint: "very depressed and hopeless, my depression is very very bad" Problems Identified/Issues Discussed: Patient is a 72yo male with reported h/o depression/anxiety, multiple medical issues including weight loss, failure to thrive, GERD, malignant neoplasm of prostate who was sent by [place] for evaluation of depressive symptoms including refusing to eat, feelings of hopelessness, worsening of anxiety, paranoia and change in mental status. Patient also asked his POA to obtain a gun because he wished to kill himself, pt also was more paranoid lately. I reviewed recent notes and met with patient at bedside. He is alert and cooperative. He jokes a little when I ask about how he's feeling stating "Well, I am a day older than I was yesterday". Patient is not oriented, states his location is [facility] and year is 2009. Patient doesn't appear to be too concerned about his disorientation. Patient reports that he remains "very depressed and hopeless, my depression is very very bad". Patient denies SI or HI. Also denies any hallucinations and states "I am having normal dreams". Sleep is "up and down, it's always been like that". Tolerating current medications and doesn't have any current discomfort or pain. He doesn't appear to be in any physical distress. Staff notes indicate that patient has been calm and visible on the unit this weekend. No episodes of agitation thus far. He is attending groups and focus appears to be improving. Speech is generally underproductive and he looks depressed with blunt affect on the unit. Patient has been compliant with medications and demonstrates fair-good appetite. There were no recent behavioral issues noted in staff reports. Diagnostic Results: r/o mdd r/o mood disorder due to a [facility] [place]inson's dementia r/o psychosis due to medications (levodopa/carbidopa) Medication Change: Yes (changed seroquel 50 HS to 50 mg po 1800) Medical Record Reviewed: Yes (yes) Mental Status Examination - Cognitive Function Orientation: Person Memory: Impaired Attention: Poor Concentration: Poor Association: Loose Fund of Knowledge: WNL - Mood Mood: Depressed ( "very depressed and hopeless, my depression is very very bad") , Anxious - Affect Affect: Flat - Speech Speech: Appropriate (but soft and monotonic) - Formal Thought Process Formal Thought Process: Delusions (little better), Paranoia ( denies today), Circumstantial - Suicidal Ideation Suicidal Ideation: No - Homicidal Ideation Homicidal Ideation: No Goal/Treatment Plan - Goal/Treatment Plan Need for Continued Stay: Remain at risks for inpatient hospitalization, Severe depression anxiety, Discharge may exacerbated symptoms, Severe functional impairment Progress Toward Problem(s) and Goals/Treatment Plan: * c/w current tx and plan * Seroquel changed from 25 mg AMHS to 50 mg HS to help with sedation during the day and night time restless/confusion on 01/02/18. The timing of this medication was changed from HS to 50 mg po 1800 to help with sedation in the AM~with good effect. * Vitals reviewed and noted below: 01/03/18 01/04/18 15:00 06:38 Temperature 97.5 F L 97.5 F L Pulse Rate 60 67 Respiratory 20 16 Rate Blood Pressure 129/64 116/60 * No new floor labs thus far Estimated Date of D/C: 01/07/18 (will monitor closely)
--- NOTE | 2018-01-05 14:18 | PCM.PYCHPN ---
Psychiatric Progress Note - Psychiatric Progress Note Patient seen today, length of contact: 30min Patient Chief Complaint: "I need my glasses" Problems Identified/Issues Discussed: Suicide/ homicide prevention, past psychiatric h/o, current psychiatric symptoms , medical problems, risk/benefits and alternatives of medications, medications compliance, coping strategies, substance abuse h/o, relapse prevention, importance of follow up with psychiatrist and therapist, discharge plan. Medical Problems: correction to my previous note: pt had parkinsonism, not parkinsons disease Diagnostic Results: 12/26/17 18:08 12/26/17 18:08 Lab Results 12/27/17 07:00: RPR Nonreactive 12/27/17 07:00: TSH 3rd Generation 1.15 12/27/17 07:00: Fasting Glucose 80, Triglycerides 124, Cholesterol 149, LDL Cholesterol Direct 76, HDL Cholesterol 38 12/26/17 19:43: Urine Opiates Screen Negative, Urine Methadone Screen Negative, Ur Barbiturates Screen Negative, Ur Phencyclidine Scrn Negative, Ur Amphetamines Screen Negative, U Benzodiazepines Scrn Positive, U Oth Cocaine Metabols Negative, U Cannabinoids Screen Positive H 12/26/17 19:43: Urine Color Yellow, Urine Appearance Clear, Urine pH 6.0, Ur Specific [place] 1.025, Urine Protein Trace H, Urine Glucose (UA) Negative, Urine Ketones 15 H, Urine Blood Negative, Urine Nitrate Negative, Urine Bilirubin Negative, Urine Urobilinogen 0.2, Ur Leukocyte Esterase Negative, Urine RBC 0 - 2, Urine WBC 0 - 2, Ur Epithelial Cells 0 - 2, Urine Bacteria Few 12/26/17 18:08: Alcohol, Quantitative < 10 12/26/17 18:08: Salicylates < 1 L, Acetaminophen < 10.0 L 12/26/17 18:08: Sodium 141, Potassium 3.9, Chloride 106, Carbon Dioxide 27, Anion Gap 12, BUN 15, Creatinine 1.0, Est GFR ( Amer) > 60, Est GFR (Non- Af Amer) > 60, Random Glucose 94, Calcium 9.7, Total Bilirubin 0.7, AST 30, ALT 23, Alkaline Phosphatase 63, Total Protein 6.3, Albumin 3.6, Globulin 2.7, Albumin/Globulin Ratio 1.3 12/26/17 18:08: WBC 5.0, RBC 3.98, Hgb 12.6 L, Hct 36.4 L, MCV 91.5, MCH 31.7, MCHC 34.6, RDW 12.8, Plt Count 275, MPV 8.8, Gran % 59.5, Lymph % (Auto) 28.0, [place] % (Auto) 9.3 H, Eos % (Auto) 2.6, Baso % (Auto) 0.6, Gran # 3.00, Lymph # ( Auto) 1.4, [place] # (Auto) 0.5, Eos # (Auto) 0.1, Baso # (Auto) 0.03 Vital Signs Temp Pulse Resp BP Pulse Ox 12/28/17 07:45 97.3 F L 62 20 97/59 L 12/27/17 16:00 70 86/54 L 12/27/17 07:06 97.3 F L 74 20 105/48 L 12/27/17 00:55 98.2 F 79 20 104/62 12/26/17 17:19 98.1 F 92 H 20 117/70 95 Temp Pulse Resp BP Pulse Ox 97.6 F 75 20 86/52 L 95 12/29/17 07:25 12/29/17 07:25 12/29/17 07:25 12/29/17 07:25 12/26/17 17:19 Temp Pulse Resp BP Pulse Ox 98.2 F 65 20 116/58 L 95 12/31/17 07:21 12/31/17 07:21 12/31/17 07:21 12/31/17 07:21 12/26/17 17:19 DSM 5 Symptoms Update: Shortly pt is 72yo male with reported h/o depression/anxiety, Parkinsonism, multiple medical issues including weight loss, failure to thrive, GERD, malignant neoplasm of prostate, was sent by [place] for evaluation of depressive symptoms, refuse to eat, feeling of hopelessness, worsening of anxiety, change in mental status, pt also was asking his POA to obtain a gun and expressed his wish to kill himself, pt also was more paranoid lately. Correction to my previous note, after discussion with (neurologist) 12/29/17 pt does not have history of Parkinson's disease, r/o dementia and severe EPS on antipsychotic/antidepressants meds. Pt requires further evaluation and stabilization, med management. pt was seen in the dinning area, pt presented to be alert, observed eating seems with good appetite, no assistance required. pt remembered this director underwriter sales but did not remember her name, pt said that he feels okay, asked about glasses to read, pt said he still feels depressed, passive wish to be . pt reported that he slept well. pt is less psychotic, more organized. less rigid, pt was able to ambulate using a walker. pt asked to have glasses because he wants to read, of note pt said he loves reading. DSM 5 Diagnosis: r/o mdd r/o mood disorder due to [place] [facility] [place] r/o psychosis due to medications (levodopa/carbidopa) h/o JANETTE, panic disorder, OCD Medication Change: Yes (klonopin decreased, zoloft increased) Medical Record Reviewed: Yes (yes) Consults ordered or reviewed: neurology consult was called, patient had EPS on psychotropic medications, was seen by Dr. Santiago. Mental Status Examination - Cognitive Function Orientation: Person Memory: Impaired Attention: Poor (some improvement) Concentration: Poor (some improvement) Association: Loose Fund of Knowledge: WNL - Mood Mood: Depressed ( "very depressed and hopeless, my depression is very very bad") , Anxious - Affect Affect: Flat - Speech Speech: Appropriate (but soft and monotonic) - Formal Thought Process Formal Thought Process: Delusions (better), Paranoia (better), Circumstantial - Suicidal Ideation Suicidal Ideation: No - Homicidal Ideation Homicidal Ideation: No Goal/Treatment Plan - Goal/Treatment Plan Need for Continued Stay: Remain at risks for inpatient hospitalization, Severe depression anxiety, Discharge may exacerbated symptoms, Severe functional impairment Progress Toward Problem(s) and Goals/Treatment Plan: milieu/structure/supportive therapy Carbidopa/Levodopa 10/100 will be resumed, pt was very stiff 01/01/18 PT eval ARTURO Tamsulosin [Flomax] 0.4 mg PO DAILY will be continued Temazepam [Restoril] will be d/c Sennosides 8.6 mg PO BID continued Vortioxetine nonformulary, Remeron was started, over night, pt slept little better, will increase dose to 15mg zoloft 100mg dailyfor OCD and Panic, JANETTE symptoms seroquel 50mg at 4pm for psychosis (better side effect profile in regards of EPS ) will give PRN meds SW evaluation POA involvement Follow up on labs Will monitor closely Pt was educated about risk/benefits and alternatives of medications, coping strategies (safety plan, suicide prevention), relapse prevention, importance of follow up with psychiatrist and therapist, stay away from drugs/alcohol/smoking Estimated Date of D/C: 01/07/18 (will monitor closely)
--- NOTE | 2018-01-06 13:41 | PCM.PYCHPN ---
Psychiatric Progress Note - Psychiatric Progress Note Patient seen today, length of contact: 30min Patient Chief Complaint: "I am trying to make best of it..., I am very depressed" Problems Identified/Issues Discussed: Suicide/ homicide prevention, past psychiatric h/o, current psychiatric symptoms , medical problems, risk/benefits and alternatives of medications, medications compliance, coping strategies, substance abuse h/o, relapse prevention, importance of follow up with psychiatrist and therapist, discharge plan. Medical Problems: correction to my previous note: pt had parkinsonism, not parkinsons disease Diagnostic Results: 12/26/17 18:08 12/26/17 18:08 Lab Results 12/27/17 07:00: RPR Nonreactive 12/27/17 07:00: TSH 3rd Generation 1.15 12/27/17 07:00: Fasting Glucose 80, Triglycerides 124, Cholesterol 149, LDL Cholesterol Direct 76, HDL Cholesterol 38 12/26/17 19:43: Urine Opiates Screen Negative, Urine Methadone Screen Negative, Ur Barbiturates Screen Negative, Ur Phencyclidine Scrn Negative, Ur Amphetamines Screen Negative, U Benzodiazepines Scrn Positive, U Oth Cocaine Metabols Negative, U Cannabinoids Screen Positive H 12/26/17 19:43: Urine Color Yellow, Urine Appearance Clear, Urine pH 6.0, Ur Specific [place] 1.025, Urine Protein Trace H, Urine Glucose (UA) Negative, Urine Ketones 15 H, Urine Blood Negative, Urine Nitrate Negative, Urine Bilirubin Negative, Urine Urobilinogen 0.2, Ur Leukocyte Esterase Negative, Urine RBC 0 - 2, Urine WBC 0 - 2, Ur Epithelial Cells 0 - 2, Urine Bacteria Few 12/26/17 18:08: Alcohol, Quantitative < 10 12/26/17 18:08: Salicylates < 1 L, Acetaminophen < 10.0 L 12/26/17 18:08: Sodium 141, Potassium 3.9, Chloride 106, Carbon Dioxide 27, Anion Gap 12, BUN 15, Creatinine 1.0, Est GFR ( Amer) > 60, Est GFR (Non- Af Amer) > 60, Random Glucose 94, Calcium 9.7, Total Bilirubin 0.7, AST 30, ALT 23, Alkaline Phosphatase 63, Total Protein 6.3, Albumin 3.6, Globulin 2.7, Albumin/Globulin Ratio 1.3 12/26/17 18:08: WBC 5.0, RBC 3.98, Hgb 12.6 L, Hct 36.4 L, MCV 91.5, MCH 31.7, MCHC 34.6, RDW 12.8, Plt Count 275, MPV 8.8, Gran % 59.5, Lymph % (Auto) 28.0, [place] % (Auto) 9.3 H, Eos % (Auto) 2.6, Baso % (Auto) 0.6, Gran # 3.00, Lymph # ( Auto) 1.4, [place] # (Auto) 0.5, Eos # (Auto) 0.1, Baso # (Auto) 0.03 Vital Signs Temp Pulse Resp BP Pulse Ox 12/28/17 07:45 97.3 F L 62 20 97/59 L 12/27/17 16:00 70 86/54 L 12/27/17 07:06 97.3 F L 74 20 105/48 L 12/27/17 00:55 98.2 F 79 20 104/62 12/26/17 17:19 98.1 F 92 H 20 117/70 95 Temp Pulse Resp BP Pulse Ox 97.6 F 75 20 86/52 L 95 12/29/17 07:25 12/29/17 07:25 12/29/17 07:25 12/29/17 07:25 12/26/17 17:19 Temp Pulse Resp BP Pulse Ox 98.2 F 65 20 116/58 L 95 12/31/17 07:21 12/31/17 07:21 12/31/17 07:21 12/31/17 07:21 12/26/17 17:19 Temp Pulse Resp BP Pulse Ox 97.8 F 70 18 104/63 95 01/06/18 06:40 01/06/18 06:40 01/06/18 06:40 01/06/18 06:40 12/26/17 17:19 DSM 5 Symptoms Update: Shortly pt is 72yo male with reported h/o depression/anxiety, Parkinsonism, multiple medical issues including weight loss, failure to thrive, GERD, malignant neoplasm of prostate, was sent by [place] for evaluation of depressive symptoms, refuse to eat, feeling of hopelessness, worsening of anxiety, change in mental status, pt also was asking his POA to obtain a gun and expressed his wish to kill himself, pt also was more paranoid lately. pt has severe EPS on antipsychotic/antidepressants meds. Pt requires further evaluation and stabilization, med management. pt was seen at the hallway, pt was ambulating using a rolling walker, pt required assistance in walking. pt was less stiff, but walking with shuffling gait. pt said "I am trying to get best of it, but I am very depressed", pt said he had a nightmare about being admitted to [facility], "I do not know how I was admitted to [facility] over night, I don't remember how I was transferred", pt knows the date "I know it is ",but was confused with month and year "It is November,", seems to be surprised that he is wrong. pt is less psychotic, more organized. pt asked to have glasses, pt's POA brought him a glasses but pt refused to read , saying that "I know all the books here". pt tolerates meds well, no side effects observed or reported, AIMS 0, no EPS. DSM 5 Diagnosis: r/o mdd r/o mood disorder due to [place] [facility] r/o psychosis due to medications (levodopa/carbidopa) h/o JANETTE, panic disorder, OCD Medication Change: No (adjusted yesterday) Medical Record Reviewed: Yes (yes) Consults ordered or reviewed: neurology consult was called, patient had EPS on psychotropic medications, was seen by Dr. Sanitago. Mental Status Examination - Cognitive Function Orientation: Person Memory: Impaired Attention: Poor (some improvement) Concentration: Poor (some improvement) Association: Loose Fund of Knowledge: WNL - Mood Mood: Depressed ("I am trying to take best of it"), Anxious - Affect Affect: Flat - Speech Speech: Appropriate (but soft and monotonic) - Formal Thought Process Formal Thought Process: Delusions (better), Paranoia (better), Circumstantial - Suicidal Ideation Suicidal Ideation: No - Homicidal Ideation Homicidal Ideation: No Goal/Treatment Plan - Goal/Treatment Plan Need for Continued Stay: Remain at risks for inpatient hospitalization, Severe depression anxiety, Discharge may exacerbated symptoms, Severe functional impairment Progress Toward Problem(s) and Goals/Treatment Plan: milieu/structure/supportive therapy Carbidopa/Levodopa will be resumed, pt was very stiff 01/01/18 PT eval ARTURO Tamsulosin [Flomax] 0.4 mg PO DAILY will be continued Temazepam [Restoril] will be d/c Sennosides 8.6 mg PO BID continued Vortioxetine nonformulary, Remeron 30mg hs for depression and insomnia zoloft 100mg dailyfor OCD and Panic, JANETTE symptoms seroquel 50mg at 4pm for psychosis (better side effect profile in regards of EPS ) will give PRN meds SW evaluation POA involvement Follow up on labs Will monitor closely Pt was educated about risk/benefits and alternatives of medications, coping strategies (safety plan, suicide prevention), relapse prevention, importance of follow up with psychiatrist and therapist, stay away from drugs/alcohol/smoking 01/06/18 d/c 1:1 Estimated Date of D/C: 01/09/18 (will monitor closely)
[2018-01-07 07:25] VITALS: RESP 20
--- NOTE | 2018-01-07 14:02 | PCM.PYCHPN ---
Psychiatric Progress Note - Psychiatric Progress Note Patient seen today, length of contact: 30min Patient Chief Complaint: "I am doing better" Problems Identified/Issues Discussed: Suicide/ homicide prevention, past psychiatric h/o, current psychiatric symptoms , medical problems, risk/benefits and alternatives of medications, medications compliance, coping strategies, substance abuse h/o, relapse prevention, importance of follow up with psychiatrist and therapist, discharge plan. Medical Problems: today pt said he was officially diagnosed with "early Parkinson's disease". pt had h/o parkinsonism as well Diagnostic Results: 12/26/17 18:08 12/26/17 18:08 Lab Results 12/27/17 07:00: RPR Nonreactive 12/27/17 07:00: TSH 3rd Generation 1.15 12/27/17 07:00: Fasting Glucose 80, Triglycerides 124, Cholesterol 149, LDL Cholesterol Direct 76, HDL Cholesterol 38 12/26/17 19:43: Urine Opiates Screen Negative, Urine Methadone Screen Negative, Ur Barbiturates Screen Negative, Ur Phencyclidine Scrn Negative, Ur Amphetamines Screen Negative, U Benzodiazepines Scrn Positive, U Oth Cocaine Metabols Negative, U Cannabinoids Screen Positive H 12/26/17 19:43: Urine Color Yellow, Urine Appearance Clear, Urine pH 6.0, Ur Specific [place] 1.025, Urine Protein Trace H, Urine Glucose (UA) Negative, Urine Ketones 15 H, Urine Blood Negative, Urine Nitrate Negative, Urine Bilirubin Negative, Urine Urobilinogen 0.2, Ur Leukocyte Esterase Negative, Urine RBC 0 - 2, Urine WBC 0 - 2, Ur Epithelial Cells 0 - 2, Urine Bacteria Few 12/26/17 18:08: Alcohol, Quantitative < 10 12/26/17 18:08: Salicylates < 1 L, Acetaminophen < 10.0 L 12/26/17 18:08: Sodium 141, Potassium 3.9, Chloride 106, Carbon Dioxide 27, Anion Gap 12, BUN 15, Creatinine 1.0, Est GFR ( Amer) > 60, Est GFR (Non- Af Amer) > 60, Random Glucose 94, Calcium 9.7, Total Bilirubin 0.7, AST 30, ALT 23, Alkaline Phosphatase 63, Total Protein 6.3, Albumin 3.6, Globulin 2.7, Albumin/Globulin Ratio 1.3 12/26/17 18:08: WBC 5.0, RBC 3.98, Hgb 12.6 L, Hct 36.4 L, MCV 91.5, MCH 31.7, MCHC 34.6, RDW 12.8, Plt Count 275, MPV 8.8, Gran % 59.5, Lymph % (Auto) 28.0, [place] % (Auto) 9.3 H, Eos % (Auto) 2.6, Baso % (Auto) 0.6, Gran # 3.00, Lymph # ( Auto) 1.4, [place] # (Auto) 0.5, Eos # (Auto) 0.1, Baso # (Auto) 0.03 Vital Signs Temp Pulse Resp BP Pulse Ox 12/28/17 07:45 97.3 F L 62 20 97/59 L 12/27/17 16:00 70 86/54 L 12/27/17 07:06 97.3 F L 74 20 105/48 L 12/27/17 00:55 98.2 F 79 20 104/62 12/26/17 17:19 98.1 F 92 H 20 117/70 95 Temp Pulse Resp BP Pulse Ox 97.6 F 75 20 86/52 L 95 12/29/17 07:25 12/29/17 07:25 12/29/17 07:25 12/29/17 07:25 12/26/17 17:19 Temp Pulse Resp BP Pulse Ox 98.2 F 65 20 116/58 L 95 12/31/17 07:21 12/31/17 07:21 12/31/17 07:21 12/31/17 07:21 12/26/17 17:19 Temp Pulse Resp BP Pulse Ox 97.8 F 70 18 104/63 95 01/06/18 06:40 01/06/18 06:40 01/06/18 06:40 01/06/18 06:40 12/26/17 17:19 Temp Pulse Resp BP Pulse Ox 98.0 F 77 20 128/67 95 01/07/18 07:25 01/07/18 07:25 01/07/18 07:25 01/07/18 07:25 12/26/17 17:19 DSM 5 Symptoms Update: Shortly pt is 72yo male with reported h/o depression/anxiety, Parkinsonism Vs Parkinson's disease, multiple medical issues including weight loss, failure to thrive, GERD, malignant neoplasm of prostate, was sent by [place] for evaluation of depressive symptoms, refuse to eat, feeling of hopelessness, worsening of anxiety, change in mental status, pt also was asking his POA to obtain a gun and expressed his wish to kill himself, pt also was more paranoid lately. pt has severe EPS on antipsychotic/antidepressants meds. Pt requires further evaluation and stabilization, med management. pt was seen at the treatment team meeting, patient presented better to compare to the time of admission pt said that today he is doing "good", pt also was making jokes that he would feel better if food will be here (it was a lunch time), obviously pt's appetite improved. Pt reported to feel depressed at times, pt also said that he could picture himself of harming self in case if he will lose his house, but at the same time pt is financially independent, pt is not in any financial debt as per POA pt has a lot of savings, "he is well off". pt has future plans to hire an aid to help him with his house and take care of the pt. pt was less stiff, but walking with shuffling gait. sleep is still problematic, but as per pt "I sleep now better than before, sleep was always an issue for me". pt is very pleasant, said "it was nice talking to you". as per staff pt was very confused yesterday at 6pm, will order labs and ua. pt tolerates meds well, no side effects observed or reported, AIMS 0, no EPS. pt said he is willing to go to [facility], then go back home and f/u with , psychiatrist. DSM 5 Diagnosis: r/o mdd r/o mood disorder due to a [facility] parkinson's dementia r/o psychosis due to medications (levodopa/carbidopa) h/o JANETTE, panic disorder, OCD Medication Change: Yes (remeron increased) Medical Record Reviewed: Yes (yes) Consults ordered or reviewed: neurology consult was called, patient had EPS on psychotropic medications, was seen by Dr. Santiago. 01/07/18 pt said he was officially dx with "early Parkinson's" Mental Status Examination - Cognitive Function Orientation: Person Memory: Impaired (improved) Attention: Poor (some improvement) Concentration: Poor (some improvement) Association: WNL Fund of Knowledge: WNL - Mood Mood: Depressed ("good"), Anxious (denied) - Affect Affect: Flat - Speech Speech: Appropriate (but soft and monotonic) - Suicidal Ideation Suicidal Ideation: No - Homicidal Ideation Homicidal Ideation: No Goal/Treatment Plan - Goal/Treatment Plan Need for Continued Stay: Remain at risks for inpatient hospitalization, Severe depression anxiety, Discharge may exacerbated symptoms, Severe functional impairment Progress Toward Problem(s) and Goals/Treatment Plan: milieu/structure/supportive therapy Carbidopa/Levodopa will be resumed, pt was very stiff 01/01/18 PT eval ARTURO Tamsulosin [Flomax] 0.4 mg PO DAILY will be continued Temazepam [Restoril] will be d/c Sennosides 8.6 mg PO BID continued Vortioxetine nonformulary, Remeron 45mg hs for depression and insomnia zoloft 100mg dailyfor OCD and Panic, JANETTE symptoms seroquel 50mg at 4pm for psychosis (better side effect profile in regards of EPS ) will give PRN meds SW evaluation POA involvement labs for 01/08/18, pt was confused 01/06/18 evening Follow up/ on labs Will monitor closely Pt was educated about risk/benefits and alternatives of medications, coping strategies (safety plan, suicide prevention), relapse prevention, importance of follow up with psychiatrist and therapist, stay away from drugs/alcohol/smoking 01/06/18 d/c 1:1 Estimated Date of D/C: 01/09/18 (will monitor closely)
--- NOTE | 2018-01-07 14:56 | PCM.BM ---
<Margie Franklin Y - Last Filed: 01/07/18 14:56> Treatment Plan Problems - Problems identified on initial assessmt Anxiety Date Initiated: 12/26/17 Time Initiated: 23:45 Assessment reference: NA Status: Active Priority: 1 Altered Thought Process Date Initiated: 12/26/17 Time Initiated: 23:45 Assessment reference: NA Status: Active Priority: 2 Altered Sleep Patterns Date Initiated: 12/26/17 Time Initiated: 23:45 Assessment reference: NA Status: Active Priority: 3 Treatment assets and liabiliti Patient Assests: cooperative Patient Liabilities: poor support system, medical problems, imparied memory, visual impairment - Milieu Protocol Maintain good personal hygiene: daily Encourage regular showers, daily Remind patient to perform daily oral care, daily Assist patient to perform ADL's Conduct patient checks and document Observation sheet: Q15 minutes Maintain personal safety: every shift Educate patient to report safety concerns to staff, every shift Monitor environment for contraband/sharps Medication safety: Monitor for expected outcome, potential side effects: every shift, Assess barriers to learning: every shift, Assess readiness for medication education: every shift Milieu Narrative: milieu/structure/supportive therapy Carbidopa/Levodopa 10 will be resumed, pt was very stiff 01/01/18 PT eval ARTURO Tamsulosin [Flomax] 0.4 mg PO DAILY will be continued Temazepam [Restoril] will be d/c Sennosides 8.6 mg PO BID continued Vortioxetine nonformulary, Remeron 45mg hs for depression and insomnia zoloft 100mg dailyfor OCD and Panic, JANTETE symptoms seroquel 50mg at 4pm for psychosis (better side effect profile in regards of EPS ) will give PRN meds SW evaluation POA involvement labs for 01/08/18, pt was confused 01/06/18 evening Follow up/ on labs Will monitor closely Pt was educated about risk/benefits and alternatives of medications, coping strategies (safety plan, suicide prevention), relapse prevention, importance of follow up with psychiatrist and therapist, stay away from drugs/alcohol/smoking 01/06/18 d/c 1:1 Family Contact Family contact: Patient agrees to contact Family contact name: Sheldon Gonzalez(cousin)POA Family contacted how many times per week?: 2 Discharge/Continuing Care - Education Needs Education Needs: Family Medication, Family Diagnosis/Disease Process, Family Coping Skills, Family Community resources, Family Nutrition, Patient Medication , Patient Diagnosis/Disease Process, Patient Coping Skills, Patient Community resources, Patient Nutrition - Discharge Discharge Criteria: Tolerates medication w/o severe side effects, Free of agitation, Normal sleep pattern, Ability to care for self - Treatment Team Participation Patient/Family/SO Statement: milieu/structure/supportive therapy Carbidopa/Levodopa 10 will be resumed, pt was very stiff 01/01/18 PT eval ARTURO Tamsulosin [Flomax] 0.4 mg PO DAILY will be continued Temazepam [Restoril] will be d/c Sennosides 8.6 mg PO BID continued Vortioxetine nonformulary, Remeron 45mg hs for depression and insomnia zoloft 100mg dailyfor OCD and Panic, JANETTE symptoms seroquel 50mg at 4pm for psychosis (better side effect profile in regards of EPS ) will give PRN meds SW evaluation POA involvement labs for 01/08/18, pt was confused 01/06/18 evening Follow up/ on labs Will monitor closely Pt was educated about risk/benefits and alternatives of medications, coping strategies (safety plan, suicide prevention), relapse prevention, importance of follow up with psychiatrist and therapist, stay away from drugs/alcohol/smoking 01/06/18 d/c 1:1 Treatment Plan Review - Problem Anxiety Time Initiated: 23:45 Altered Thought Process Time Initiated: 23:45 Altered Sleep Patterns Time Initiated: 23:45 <Barbra Haynes A - Last Filed: 01/08/18 14:21> - Diagnosis (1) MDD (major depressive disorder), recurrent, severe, with psychosis Status: Acute Interventions: 01/08/18 14:20 presented better tolerated meds well no side effects affect brighter denied thoughts of harming self or others (2) JANETTE (generalized anxiety disorder) Status: Acute Interventions: 01/08/18 14:20 pt still anxious, but with improvement (3) Panic disorder Status: Acute Interventions: 01/08/18 14:20 presented better, anxiety is improving
[2018-01-07 17:29] LABS: URINE BILIRUBIN NEGATIVE (NEGATIVE); URINE BLOOD NEGATIVE (NEGATIVE); URINE GLUCOSE (UA) NEGATIVE (NEGATIVE); URINE LEUKOCYTE ESTERASE NEGATIVE Leu/uL (NEGATIVE); URINE PROTEIN NEGATIVE mg/dL (<30 mg/dL); URINE UROBILINOGEN 0.2 E.U./dL (<1 E.U./dL)
[2018-01-07 17:30] LABS: URINE APPEARANCE CLEAR (CLEAR); URINE COLOR YELLOW (YELLOW)
[2018-01-08 07:11] LABS: BASO # 0.02 K/mm3 (0.0-2.0); BASO % 0.4 % (0.0-3.0); EOS # 0.4 (0.0-0.7); EOS % 6.7 % (1.5-5.0); GRAN # 3.31 (1.4-6.5); GRAN % 58.5 % (50.0-68.0); HEMOGLOBIN 12.2 g/dL (14.0-18.0); LYMPH # 1.4 (1.2-3.4); LYMPH % 24.8 % (22.0-35.0); MEAN CELL VOLUME 90.9 fl (80.0-105.0); MEAN CORPUSCULAR HEMOGLOBIN 31.6 pg (25.0-35.0); MEAN CORPUSCULAR HGB CONC 34.8 g/dl (31.0-37.0); MEAN PLATELET VOLUME 8.5 fl (7.0-11.0); MONO # 0.5 (0.1-0.6); MONO % 9.6 % (1.0-6.0); RBC 3.86 10^6/uL (3.5-6.1); WHITE BLOOD COUNT 5.7 10^3/ul (4.5-11.0)
[2018-01-08 07:28] LABS: ALB/GLOB RATIO 1.4 (1.1-1.8); ALBUMIN 3.4 g/dL (3.0-4.8); ALT/SGPT 34 U/L (7-56); AST/SGOT 19 U/L (17-59); BLOOD UREA NITROGEN 13 mg/dL (7-21); CALCIUM 9.5 mg/dL (8.4-10.5); GFR AFRICAN-AMERICAN > 60; GFR NON-AFRICAN AMERICAN > 60
--- NOTE | 2018-01-08 15:27 | PCM.PYCHPN ---
Psychiatric Progress Note - Psychiatric Progress Note Patient seen today, length of contact: 30min Patient Chief Complaint: "What can I say?, I am sad that my life is moving to this direction", pt was referring to his medical issues. Problems Identified/Issues Discussed: Suicide/ homicide prevention, past psychiatric h/o, current psychiatric symptoms , medical problems, risk/benefits and alternatives of medications, medications compliance, coping strategies, substance abuse h/o, relapse prevention, importance of follow up with psychiatrist and therapist, discharge plan. Medical Problems: today pt said he was officially diagnosed with "early Parkinson's disease". pt had h/o parkinsonism as well Diagnostic Results: 12/26/17 18:08 12/26/17 18:08 Lab Results 12/27/17 07:00: RPR Nonreactive 12/27/17 07:00: TSH 3rd Generation 1.15 12/27/17 07:00: Fasting Glucose 80, Triglycerides 124, Cholesterol 149, LDL Cholesterol Direct 76, HDL Cholesterol 38 12/26/17 19:43: Urine Opiates Screen Negative, Urine Methadone Screen Negative, Ur Barbiturates Screen Negative, Ur Phencyclidine Scrn Negative, Ur Amphetamines Screen Negative, U Benzodiazepines Scrn Positive, U Oth Cocaine Metabols Negative, U Cannabinoids Screen Positive H 12/26/17 19:43: Urine Color Yellow, Urine Appearance Clear, Urine pH 6.0, Ur Specific Susan 1.025, Urine Protein Trace H, Urine Glucose (UA) Negative, Urine Ketones 15 H, Urine Blood Negative, Urine Nitrate Negative, Urine Bilirubin Negative, Urine Urobilinogen 0.2, Ur Leukocyte Esterase Negative, Urine RBC 0 - 2, Urine WBC 0 - 2, Ur Epithelial Cells 0 - 2, Urine Bacteria Few 12/26/17 18:08: Alcohol, Quantitative < 10 12/26/17 18:08: Salicylates < 1 L, Acetaminophen < 10.0 L 12/26/17 18:08: Sodium 141, Potassium 3.9, Chloride 106, Carbon Dioxide 27, Anion Gap 12, BUN 15, Creatinine 1.0, Est GFR ( Amer) > 60, Est GFR (Non- Af Amer) > 60, Random Glucose 94, Calcium 9.7, Total Bilirubin 0.7, AST 30, ALT 23, Alkaline Phosphatase 63, Total Protein 6.3, Albumin 3.6, Globulin 2.7, Albumin/Globulin Ratio 1.3 12/26/17 18:08: WBC 5.0, RBC 3.98, Hgb 12.6 L, Hct 36.4 L, MCV 91.5, MCH 31.7, MCHC 34.6, RDW 12.8, Plt Count 275, MPV 8.8, Gran % 59.5, Lymph % (Auto) 28.0, [place] % (Auto) 9.3 H, Eos % (Auto) 2.6, Baso % (Auto) 0.6, Gran # 3.00, Lymph # ( Auto) 1.4, [place] # (Auto) 0.5, Eos # (Auto) 0.1, Baso # (Auto) 0.03 Vital Signs Temp Pulse Resp BP Pulse Ox 12/28/17 07:45 97.3 F L 62 20 97/59 L 12/27/17 16:00 70 86/54 L 12/27/17 07:06 97.3 F L 74 20 105/48 L 12/27/17 00:55 98.2 F 79 20 104/62 12/26/17 17:19 98.1 F 92 H 20 117/70 95 Temp Pulse Resp BP Pulse Ox 97.6 F 75 20 86/52 L 95 12/29/17 07:25 12/29/17 07:25 12/29/17 07:25 12/29/17 07:25 12/26/17 17:19 Temp Pulse Resp BP Pulse Ox 98.2 F 65 20 116/58 L 95 12/31/17 07:21 12/31/17 07:21 12/31/17 07:21 12/31/17 07:21 12/26/17 17:19 Temp Pulse Resp BP Pulse Ox 97.8 F 70 18 104/63 95 01/06/18 06:40 01/06/18 06:40 01/06/18 06:40 01/06/18 06:40 12/26/17 17:19 Temp Pulse Resp BP Pulse Ox 98.0 F 77 20 128/67 95 01/07/18 07:25 01/07/18 07:25 01/07/18 07:25 01/07/18 07:25 12/26/17 17:19 Laboratory Results - last 24 hr 01/07/18 01/08/1801/08/18 17:20 06:45 06:45 WBC 5.7 RBC 3.86 Hgb 12.2 L Hct 35.1 L MCV 90.9 MCH 31.6 MCHC 34.8 RDW 13.0 Plt Count 249 MPV 8.5 Gran % 58.5 Lymph % (Auto) 24.8 [place] % (Auto) 9.6 H Eos % (Auto) 6.7 H Baso % (Auto) 0.4 Gran # 3.31 Lymph # (Auto) 1.4 [place] # (Auto) 0.5 Eos # (Auto) 0.4 Baso # (Auto) 0.02 Sodium 143 Potassium 3.7 Chloride 105 Carbon Dioxide 29 Anion Gap 12 BUN 13 Creatinine 1.0 Est GFR ( Amer) > 60 Est GFR (Non-Af Amer) > 60 Random Glucose 92 Calcium 9.5 Total Bilirubin 0.6 AST 19 ALT 34 Alkaline Phosphatase 65 Total Protein 6.0 Albumin 3.4 Globulin 2.5 Albumin/Globulin Ratio 1.4 Urine Color Yellow Urine Appearance Clear Urine pH 6.0 Ur Specific Susan >= 1.030 Urine Protein Negative Urine Glucose (UA) Negative Urine Ketones Trace H Urine Blood Negative Urine Nitrate Negative Urine Bilirubin Negative Urine Urobilinogen 0.2 Ur Leukocyte Esterase Negative Temp Pulse Resp BP Pulse Ox 99.2 F 72 20 111/56 L 95 01/08/18 07:07 01/08/18 07:07 01/08/18 07:07 01/08/18 07:07 12/26/17 17:19 DSM 5 Symptoms Update: Shortly pt is 72yo male with reported h/o depression/anxiety, Parkinsonism Vs Parkinson's disease, multiple medical issues including weight loss, failure to thrive, GERD, malignant neoplasm of prostate, was sent by [facility] for evaluation of depressive symptoms, refuse to eat, feeling of hopelessness, worsening of anxiety, change in mental status, pt also was asking his POA to obtain a gun and expressed his wish to kill himself, pt also was more paranoid lately. pt has severe EPS on antipsychotic/antidepressants meds. Pt requires further evaluation and stabilization, med management. pt was seen at the treatment team meeting room, patient presented to be more restless, anxious, seems to be not able to stay still, Xanax was resumed, 0.25 mg twice a day scheduled. 1:1 resumed because high risk of falls. sleep is still problematic, but as per pt "I sleep now better than before, sleep was always an issue for me". Affect was more reactive, mood congruent. pt was less stiff, but walking with shuffling gait. pt is very pleasant, said "it was nice talking to you". as per staff pt was very confused 01/06/18 pt's labs WNL today, no signs of delirium. pt tolerates meds well, no side effects observed or reported, AIMS 0, no EPS. pt said he is willing to go to [facility], then go back home and f/u with , psychiatrist. DSM 5 Diagnosis: r/o mdd r/o mood disorder due to a [facility] parkinson's dementia r/o psychosis due to medications (levodopa/carbidopa) h/o JANETTE, panic disorder, OCD Medication Change: Yes (xanax) Medical Record Reviewed: Yes (yes) Consults ordered or reviewed: neurology consult was called, patient had EPS on psychotropic medications, was seen by Dr. Santiago. 01/07/18 pt said he was officially dx with "early Parkinson's" Mental Status Examination - Cognitive Function Orientation: Person Memory: Impaired (improved) Attention: Poor (some improvement) Concentration: Poor (some improvement) Association: WNL Fund of Knowledge: WNL - Mood Mood: Depressed ("I am sad that my life is moving to this direction"), Anxious ( denied) - Affect Affect: Flat - Speech Speech: Appropriate (but soft and monotonic) - Formal Thought Process Formal Thought Process: Delusions (better), Paranoia (better) - Suicidal Ideation Suicidal Ideation: No - Homicidal Ideation Homicidal Ideation: No Goal/Treatment Plan - Goal/Treatment Plan Need for Continued Stay: Remain at risks for inpatient hospitalization, Severe depression anxiety, Discharge may exacerbated symptoms, Severe functional impairment Progress Toward Problem(s) and Goals/Treatment Plan: milieu/structure/supportive therapy Carbidopa/Levodopa will be resumed, pt was very stiff 01/01/18 PT eval ARTURO Tamsulosin [Flomax] 0.4 mg PO DAILY will be continued Temazepam [Restoril] will be d/c Sennosides 8.6 mg PO BID continued Vortioxetine nonformulary, Remeron 45mg hs for depression and insomnia zoloft 100mg dailyfor OCD and Panic, JANETTE symptoms seroquel 50mg at 4pm for psychosis (better side effect profile in regards of EPS ) will give PRN meds xanax 0.25mg po bid and hs SW evaluation POA involvement labs for 01/08/18 WNL, pt was confused 01/06/18 evening Follow up/ on labs Will monitor closely Pt was educated about risk/benefits and alternatives of medications, coping strategies (safety plan, suicide prevention), relapse prevention, importance of follow up with psychiatrist and therapist, stay away from drugs/alcohol/smoking 01/06/18 d/c 1:1 Estimated Date of D/C: 01/12/18 (will monitor closely)
[2018-01-09 06:54] VITALS: BP 129/75; PULSE 76; TEMP 97.3
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
== END 2018-01-09 11:24 | DRG 885 ==
LOC: ED 17:02 → ERH 22:24 → PSYC 23:43
PROVIDERS: ADMIT Psychiatry & Neurology Psychiatry; ATTEND Psychiatry & Neurology Psychiatry
DX: F33.3 Major depressive disorder, recurrent, severe with psychotic symptoms (principal); F41.1 Generalized anxiety disorder; F42.9 Obsessive-compulsive disorder, unspecified; F41.0 Panic disorder [episodic paroxysmal anxiety]; G31.83 Neurocognitive disorder with Lewy bodies; K21.9 Gastro-esophageal reflux disease without esophagitis; R62.7 Adult failure to thrive; R63.4 Abnormal weight loss; Z68.21 Body mass index [BMI] 21.0-21.9, adult; Z85.46 Personal history of malignant neoplasm of prostate